=== PATIENT | female | born 1970 | race Caucasian/White ===

== ENCOUNTER 2024-01-24 11:43 | Emergency (ER) | payer OTHER ==
[~2024-01-24] VITALS: Ht 162.6 cm; Wt 100.9 kg
[2024-01-24] MEDS ORDERED: ONDANSETRON HCL INJ 2MG/ML 2ML 2 MG/ML VIAL ONE (12:25)
[2024-01-24] MEDS: SODIUM CHLORIDE 0.9% 1000ML 1,000 ML IV STA (12:27)
[2024-01-24] MEDS: ONDANSETRON HCL INJ 2MG/ML 2ML 2 MG/ML VIAL IV STA (12:36)
[2024-01-24] MEDS ORDERED: TRAZODONE HCL100 MG PO (12:45)
[2024-01-24] MEDS ORDERED: HYDROCHLOROTHIA25 MG PO (12:45)
[2024-01-24] MEDS ORDERED: CLONAZEPAM1 MG PO (12:45)
[2024-01-24] MEDS ORDERED: LISINOPRIL10 MG PO (12:45)
[2024-01-24] MEDS ORDERED: IOPAMIDOL 370 MG/ML 100 ML INFUS..BTL INJ ONE (12:46)
[2024-01-24] MEDS ORDERED: tylenol (14:09)
[2024-01-24] MEDS ORDERED: ACETAMINOPHEN COD PO (14:09)
[2024-01-24 14:19] VITALS: PULSE 81; RESP 16; TEMP 98.1; O2SAT 98
== END 2024-01-24 14:19 | disposition home or self-care (01) ==
LOC: FSED 11:46
DX: R10.31 Right lower quadrant pain (principal); R19.7 Diarrhea, unspecified; I10 Essential (primary) hypertension; F41.9 Anxiety disorder, unspecified; Z87.442 Personal history of urinary calculi; Z98.84 Bariatric surgery status
CPT/HCPCS: 74177; 80053; 85025; 96374; 99284; J2405; J7030; Q9967

== ENCOUNTER 2024-01-31 13:13 | Emergency (ER) | payer OTHER ==
[~2024-01-31] VITALS: Ht 162.6 cm; Wt 102.1 kg
[~2024-01-31 13:13] MED LIST: ACETAMINOPHEN COD PO; CLONAZEPAM1 MG PO; HYDROCHLOROTHIA25 MG PO; LISINOPRIL10 MG PO; TRAZODONE HCL100 MG PO; tylenol
[2024-01-31] MEDS: SODIUM CHLORIDE 0.9% 1000ML 1,000 ML IV STA ×2 (14:30→15:52)
[2024-01-31 15:34] VITALS: PULSE 78; RESP 16; TEMP 98.5
[2024-01-31] MEDS: KETOROLAC TROMETHAMINE 30 MG/ML VIAL IV STA (15:53)
[2024-01-31 16:40] VITALS: BP 94/62; PULSE 72; RESP 18; O2SAT 96
== END 2024-01-31 16:54 | disposition home or self-care (01) ==
LOC: FSED 13:28
DX: I95.9 Hypotension, unspecified (principal); E86.0 Dehydration; I10 Essential (primary) hypertension; E78.5 Hyperlipidemia, unspecified; F41.9 Anxiety disorder, unspecified; F17.200 Nicotine dependence, unspecified, uncomplicated; Z98.84 Bariatric surgery status; Z79.899 Other long term (current) drug therapy
CPT/HCPCS: 70450; 80048; 81003; 83605; 85025; 99284; J1885; J7030

== ENCOUNTER → 2024-02-09 | Outpatient (REF) | payer OTHER | LOC: MAMMO 07:57 | PROVIDERS: ATTEND Internal Medicine | DX: R92.1 Mammographic calcification found on diagnostic imaging of breast (principal) ==